=== PATIENT | female | born 2000 | race Caucasian/White ===

== ENCOUNTER 2024-03-20 23:14 | Emergency (ER) | payer BC ==
[2024-03-20 23:34] VITALS: BP 127/89; PULSE 102; RESP 18; TEMP 99; BMI 22.3
== END 2024-03-21 02:18 | disposition home or self-care (01) ==
LOC: JER 23:14
DX: J10.1 Influenza due to other identified influenza virus with other respiratory manifestations (principal); M79.662 Pain in left lower leg
CPT/HCPCS: 93005; 93010; 93971-TC; 99284-25